=== PATIENT | female | born 1980 | race Caucasian/White ===

== ENCOUNTER 2017-04-03 09:17 | Outpatient (CLI) | payer BC, MEDICAID ==
--- NOTE | 2017-04-03 13:24 | Ultrasound Report ---
FINAL REPORT EXAM: US RENAL BILAT HISTORY: LEFT UPPER QUADRANT PAIN. Patient is 37 weeks . TECHNIQUE: Renal ultrasound PRIORS: None. FINDINGS: The right kidney measures 10.3 x 5.5 x 6.1 cm. Renal cortex is 1.8 cm. Left kidney measures 11.6 x 5.2 x 5.8 cm. Renal cortex measures at least 1.3 cm thickness. There is a minimal degree of right hydronephrosis. There is a left renal echogenicity without shadowing. This could be a renal calculus. Bladder is incompletely distended, grossly unremarkable. IMPRESSION: Minimal right hydronephrosis. Small echogenicity in the left kidney without shadowing could be a small renal stone.
== END 2017-04-03 09:18 | disposition home or self-care (01) ==
LOC: US 09:17
PROVIDERS: ATTEND Obstetrics & Gynecology
DX: N13.30 Unspecified hydronephrosis (principal)
CPT/HCPCS: 76770

== ENCOUNTER 2017-04-16 10:27 | Inpatient (IN) | payer BC, MEDICAID ==
[2017-04-16] MEDS ORDERED: MINERAL OIL PO PRN (11:38)
[2017-04-16] MEDS ORDERED: BRETHINE SUB-Q PRN (11:38)
[2017-04-16] MEDS ORDERED: XYLOCAINE 2% INFILTRATI ONE (11:38)
[2017-04-16] MEDS ORDERED: ZOFRAN IV PRN (11:38)
[2017-04-16] MEDS ORDERED: ePHEDrine SULFATE IV PRN (11:38)
[2017-04-16] MEDS ORDERED: POLYCILLIN/NS 2 GM/100 ML 2 GM/100 ML BAG IV ONE (11:38)
[2017-04-16] MEDS ORDERED: SUBLIMAZE IV PRN (11:38)
[2017-04-16] MEDS ORDERED: PITOCin/NS 20 UNIT/1000ML DRIP 20 UNITS/1,000 ML BAG IV SCH (12:00)
[2017-04-16] MEDS ORDERED: PITOCin/NS 30 UNIT/500ML 30 UNITS/500 ML BAG IV SCH ×2 (12:00→18:00)
[2017-04-16 12:21] LABS: Hematocrit 34.5 % (30.3-42.9); Hemoglobin 12.1 gm/dl (10.1-14.3); Mean Corpuscular HGB Conc 35 % (30-34); Mean Corpuscular Hemoglobin 34 pg (28-32); Mean Corpuscular Volume 97 fl (79-97); Platelet Count 165 K/mm3 (140-440); Red Blood Count 3.57 M/mm3 (3.65-5.03); Red Cell Distribution Width 14.4 % (13.2-15.2)
[2017-04-16] MEDS: LACTATED RINGERS 1,000 ML IV SCH ×2 (13:04→22:47)
--- NOTE | 2017-04-16 13:12 | History and Physical Report ---
History of Present Illness Date of examination: 04/16/17 (pt presents to Triage with SROM) Date of admission: 04/16/17 11:50 History of present illness: EDC Confirmation: 04/28/2017 Gestational Age: 7 3/7 weeks Past History : 2 Term Births: 1 Living Children: 1 # 1 Delivery date: 09/25/2013 Weeks Gestation: 39 Delivery type: Vaginal Anesthesia type: none Delivery location: [facility] Infant Sex: male weight: 7#8oz Comments: none Past Medical History: Reviewed history from 02/03/2013 and no changes required: Negative Past Medical History Past Surgical History: Reviewed history from 01/01/2013 and no changes required: negative Past Medical History Anesthesia Complications: negative Anemia: negative Autoimmune Disorder: negative Bleeding Disorder: negative Blood Transfusions: negative Breast Disease: negative Diabetes: negative Heart Disease: negative Hypertension: negative Hepatitis/Liver Disease: negative Kidney Disease/UTI: negative Neurologic/Epilepsy/Migraines: negative Phlebitis/Varicosities: negative Psychiatric: negative Pulmonary Disease/Asthma: negative Thyroid Disease: negative Hospitalizations: negative Surgery (Non-director of content and programming): negative Abnormal PAP: negative KATHRYN Exposure: negative Infertility: negative Uterine Anomaly: negative Uterine Surgery (not C/S): negative Other Gynecologic Problems: negative Social Hx: Patient is Infection History Hx of STD: none HIV Risk Eval: low risk Hepatitis B Risk Eval: low risk Personal hx. of genital herpes: no Partner hx. of genital herpes: no Varicella/Chicken Pox Status: Previous Disease Genetic History Congenital Heart Defect: Mom: no Dad: no Atul Disease: Mom: no Dad: no Thalassemia Mom: no Dad: no Neural Tube Defect Mom: no Dad: no Down's Syndrome Mom: no Dad: no Jesus-Sachs Mom: no Dad: no Sickle Cell Disease/Trait Mom: no Dad: no Hemophilia Mom: no Dad: no Muscular Dystrophy Mom: no Dad: no Cystic Fibrosis Mom: no Dad: no [place] Chorea Mom: no Dad: no Mental Retardation Mom: no Dad: no Fragile X Mom: no Dad: no Other Genetic/Chromosomal Disorder Mom: no Dad: no Child w/other defect Mom: no Dad: no Comments/Counseling: Nephew has some terrible neurological disorder--doesn't move, has feeding tube. Enviromental Exposures Xray Exposure: no Medication, drug, or alcohol use since LMP: no Chemical/Other Exposure: no Exposure to Cat Liter: no Current Allergies (reviewed today): No known allergies Laboratory Results Routine Urinalysis Leukocytes: negative Nitrite: negative Urobilinogen: negative Protein: negative Blood: 1+ Ketone: negative Bilirubin: negative Glucose: negative Urine HCG: positive Review of Systems General Denies fever, chills, sweats, anorexia, fatigue, weakness, malaise, weight loss and sleep disorder. Denies nausea, vomiting, headache, swelling of legs, abdominal pain, vaginal discharge, vaginal bleeding and contractions. Denies vaginal discharge, incontinence, dysuria, hematuria, urinary frequency, amenorrhea, menorrhagia, abnormal vaginal bleeding, pelvic pain, genital sores, decreased libido, painful periods, painful sex, urinary urgency, hot flashes, vaginal dryness, vaginal itching and vaginal odor. CV Denies chest pains, palpitations, syncope, dyspnea on exertion, orthopnea, PND and peripheral edema. Resp Denies cough, dyspnea at rest, excessive sputum, hemoptysis, wheezing and pleurisy. GI Denies nausea, vomiting, diarrhea, constipation, change in bowel habits, abdominal pain, melena, hematochezia, jaundice, gas/bloating, indigestion/ heartburn, dysphagia and odynophagia. Endo Denies cold intolerance, heat intolerance, polydipsia, polyphagia, polyuria and unusual weight change. Breast Denies left breast lump, right breast lump, nipple discharge, bloody discharge from nipple, breast pain, abnormal mammogram and breast enlargement. MS Denies back pain, joint pain, joint swelling, muscle cramps, muscle weakness, stiffness, arthritis, sciatica, restless legs, leg pain at night and leg pain with exertion. Derm Denies rash, itching, dryness and suspicious lesions. Neuro Denies paralysis, paresthesias, headache, seizures, tremors, vertigo, transient blindness, frequent falls, frequent headaches and difficulty walking. Psych Denies depression, anxiety, irritability and mood swings. Eyes Denies blurring, diplopia, irritation, discharge, vision loss, eye pain and photophobia. ENT Denies earache, ear discharge, tinnitus, decreased hearing, nasal congestion, nosebleeds, sore throat and hoarseness. Allergy Denies urticaria, allergic rash, hay fever and recurrent infections. Heme Denies abnormal bruising, bleeding and enlarged lymph nodes. PHYSICAL EXAM HEENT: PERRLA, normal conjunctiva, external nose and nasal mucosa normal, oropharynx clear Neck/Thyroid: supple, thyroid normal Skin no significant abnormal lesions or rashes Chest: respiratory effort normal, clear to auscultation Breasts: normal without skin changes or masses CV: regular, normal S1-S2, no murmur, no rub, no gallop Abdomen: normal bowel sounds, soft, nontender, no HSM Musculoskeletal: grossly normal ROM in joints, no joint tenderness or muscle weakness Neuro: grossly normal DTRs, sensation, strength, cranial nerves Extremities: no clubbing, cyanosis, or edema [employer]EN[employer] 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 Exams Vulva/Vagina: No lesions, normal BUS, normal rugae Cervix: No lesions; no cervical motion tenderness Uterus: normal size and position, midline, mobile Adnexae: no masses or tenderness Rectovaginal: no masses or tenderness Past History - Obstetrical History Expected Date of Delivery: 04/28/17 Actual Gestation: 38 Week(s) 2 Day(s) : 2 Para: 1 Hx # Term Pregnancies: 1 Number of Living Children: 1 Medications and Allergies Allergies Allergy/AdvReac Type Severity Reaction Status Date / Time No Known Allergies Allergy Unverified 09/24/13 22:31 Home Medications Medication Instructions Recorded Confirmed Last Taken Type Ferrous Sulfate [Feosol 325 MG tab] 325 mg PO BID #60 tablet 09/26/13 04/16/17 Unknown Rx Ibuprofen [Motrin 600 MG tab] 800 mg PO Q6H PRN #30 tablet 09/26/13 04/16/17 Unknown Rx Pnv No.121/Iron/Folic Acid 1 tab PO QDAY 04/16/17 04/16/17 04/15/17 14:00 History [ Multivitamin Tablet] Active Meds: Active Medications Butorphanol Tartrate (Stadol) 2 mg IV Q2H PRN PRN Reason: Pain , Severe (7-10) Ephedrine Sulfate (Ephedrine Sulfate) 10 mg IV Q2M PRN PRN Reason: Hypotension Fentanyl (Sublimaze) 100 mcg IV Q2H PRN PRN Reason: Labor Pain Ampicillin Sodium (Polycillin/Ns 1 Gm/50 Ml) 1 gm in 50 mls @ 100 mls/hr IV Q4HR TREASURE PRN Reason: Protocol Lactated Ringer's (Lactated Ringers) 1,000 mls @ 125 mls/hr IV DIRECT TREASURE Last Admin: 04/16/17 13:04 Dose: 125 mls/hr Oxytocin/Sodium Chloride (Pitocin/Ns 20 Unit/1000ml Drip) 20 units in 1,000 mls @ 125 mls/hr IV DIRECT TREASURE Oxytocin/Sodium Chloride (Pitocin/Ns 30 Unit/500ml) 30 units in 500 mls @ 4 mls /hr IV TITR TREASURE PRN Reason: Protocol Influenza Virus Vaccine Quadrival (Fluarix Quad [id number](36 Mos+) 0.5 ml IM .ONCE ONE Stop: 04/17/17 12:01 Mineral Oil (Mineral Oil) 30 ml PO QHS PRN PRN Reason: Constipation Ondansetron HCl (Zofran) 4 mg IV Q8H PRN PRN Reason: Nausea And Vomiting Terbutaline Sulfate (Brethine) 0.25 mg SUB-Q ONCE PRN PRN Reason: Hyperstimulation/Hypertonicity - Vital Signs Vital signs: Vital Signs Pulse BP 86 112/70 04/16/17 11:20 04/16/17 11:20 Temp Pulse Resp BP Pulse Ox 95 H 112/72 98 04/16/17 13:09 04/16/17 13:05 04/16/17 13:09 - Physical Exam Breasts: Positive: deferred Cardiovascular: Regular rate, Normal S1, Normal S2 Lungs: Positive: Normal air movement Abdomen: Positive: normal appearance, soft, normal bowel sounds. Negative: distention, tenderness Genitourinary (Female): Positive: normal external genitalia Vulva: both: normal Vagina: Positive: normal moisture. Negative: discharge Cervix: Negative: lesion, discharge Uterus: Positive: normal size, normal contour Adnexa: both: normal Anus/Rectum: Positive: normal perianal skin, heme negative. Negative: rectal mass, hemorrhoids Extremities: Positive: normal Deep Tendon Reflex Grade: Normal +2 - Obstetrical FHR: category 1 Uterine Contraction Monitor Mode: External Cervical Dilatation: 1 (per creative/art director) Cervical Effacement Percentage: 30 station: -3 Uterine Contraction Pattern: Irregular Uterine Tone Measurement Phase: Resting Uterine Contraction Intensity: Mild (pt does not feel ctx at all) Results Result Diagrams: 04/16/17 11:50 Abnormal lab results 04/16/17 Range/Units 11:50 RBC 3.57 L (3.65-5.03) M/mm3 MCH 34 H (28-32) pg MCHC 35 H (30-34) % All other labs normal. Urine Culture, Routine [A] Final report *1 Tests: (2) Result ([id number]) Jan 05 dx made of GBS in urine. ! ! Result 2 [A] BETAGB *3 Beta hemolytic Streptococcus, group B 10,000-25,000 colony forming units per mL Penicillin and ampicillin are drugs of choice for treatment of beta-hemolytic streptococcal infections. Susceptibility testing of penicillins and other beta-lactam agents approved by the FDA for treatment of beta-hemolytic streptococcal infections need not be performed routinely because nonsusceptible isolates are extremely rare in any beta-hemolytic streptococcus and have not been reported for Streptococcus pyogenes (group A). (CLSI 2011) HBsAg Screen Negative Negative *1 Rubella Antibodies, IgG [L] <0.90 index Immune >0.99 *2 Non-immune <0.90 Equivocal 0.90 - 0.99 Immune >0.99 ABO Grouping O *3 Rh Factor Positive *4 Please note: Prior records for this patient's ABO / Rh type are not available for additional verification. Antibody Screen Negative Negative *5 RPR Non Reactive Non Reactive *6 WBC 7.6 x10E3/uL 3.4-10.8 *7 RBC 3.87 x10E6/uL 3.77-5.28 *8 Hemoglobin 12.6 g/dL 11.1-15.9 *9 Hematocrit 37.4 % 34.0-46.6 *10 MCV 97 fL 79-97 *11 MCH 32.6 pg 26.6-33.0 *12 MCHC 33.7 g/dL 31.5-35.7 *13 RDW 14.3 % 12.3-15.4 *14 Platelets 231 x10E3/uL 150-379 *15 Neutrophils 69 % *16 Lymphs 24 % *17 Monocytes 6 % *18 Eos 1 % *19 Basos 0 % *20 ! Immature Cells <No Reported Value> *21 Neutrophils (Absolute) 5.2 x10E3/uL 1.4-7.0 *22 Lymphs (Absolute) 1.8 x10E3/uL 0.7-3.1 *23 Monocytes(Absolute) 0.4 x10E3/uL 0.1-0.9 *24 Eos (Absolute) 0.1 x10E3/uL 0.0-0.4 *25 Baso (Absolute) 0.0 x10E3/uL 0.0-0.2 *26 ! Immature Granulocytes 0 % *27 ! Immature Grans (Abs) 0.0 x10E3/uL 0.0-0.1 *28 ! NRBC <No Reported Value> *29 Hematology Comments: <No Reported Value> *30 Tests: (2) HB Solu + Rflx [facility] ([id number]) Hemoglobin (Hgb) Solubility Negative Negative *31 Tests: (3) Panel [id number] ([id number]) HIV Screen 4th Generation wRfx Non Reactive Non Reactive *32 Tests: (4) HCV Ab w/Rflx to Verification (167809) ! HCV Ab <0.1 s/co ratio 0.0-0.9 *33 Tests: (5) Comment: ([id number]) ! Comment: SPRCS *34 Non reactive HCV antibody screen is consistent with no HCV infection, unless recent infection is suspected or other evidence exists to indicate HCV infection. Assessment and Plan 37yo @ 38 weeks with PROM. GBS+ from urine culture. Amp started. All orders in EMR - Patient Problems (1) GBS (group B Streptococcus carrier), +RV culture, currently Onset Date: ~04/16/17 Current Visit: Yes Status: Acute Plan to address problem: Ampicillin started Pt presented with SROM prior to labor. Ampicillin per protocol.
[2017-04-16] MEDS: STADOL IV PRN ×2 (16:21→22:41)
[2017-04-16] MEDS: POLYCILLIN/NS 1 GM/50 ML 1 GM/50 ML BAG IV SCH ×2 (17:11→21:00)
[2017-04-16] MEDS ORDERED: AMBIEN PO PRN (17:36)
--- NOTE | 2017-04-16 17:47 | Progress Note ---
Assessment and Plan no significant cervical change pitocin augmentation and regular ctx. afebrile, fluid is clear and odorless, abd soft and nontender. Will allow patient to shower and eat dinner, and do low dose pitocin overnight for cervical ripening. expectations discussed for pt to rest tonight but that she may kick into labor at any time. We will continue to limit SVEs and monitor for s/s infection. All questions addressed, patient and s/o verbalize understanding. - Patient Problems (1) 38 weeks gestation of Current Visit: Yes Status: Acute (2) GBS (group B Streptococcus carrier), +RV culture, currently Onset Date: ~04/16/17 Current Visit: Yes Status: Acute Plan to address problem: Continue antibiotics q4h (3) PROM (premature rupture of membranes) Current Visit: Yes Status: Acute Qualifiers: PROM onset of labor timing: unspecified duration between rupture of membranes and onset of labor PROM gestational age: full term Qualified Code( s): O42.92 - Full-term premature rupture of membranes, unspecified as to length of time between rupture and onset of labor Plan to address problem: Limit SVE monitor for s/s infection Subjective - Subjective Date of service: 04/16/17 Principal diagnosis: IUP @ 38weeks, PROM 04/16/17 clear Patient reports: loss of fluid, movement normal, contractions, no new complaints, no vaginal bleeding Objective - Vital Signs Vital Signs: Vital Signs - 12hr 04/16/17 04/16/17 04/16/17 11:20 12:49 12:54 Temperature Pulse Rate 86 89 82 Respiratory Rate Blood Pressure 112/70 Blood Pressure [Right] O2 Sat by Pulse 97 97 Oximetry 04/16/17 04/16/17 04/16/17 12:59 13:04 13:05 Temperature Pulse Rate 83 82 80 Respiratory Rate Blood Pressure 112/72 Blood Pressure [Right] O2 Sat by Pulse 97 98 Oximetry 04/16/17 04/16/17 04/16/17 13:06 13:09 13:14 Temperature Pulse Rate 63 95 H 87 Respiratory Rate Blood Pressure Blood Pressure [Right] O2 Sat by Pulse 91 98 97 Oximetry 04/16/17 04/16/17 04/16/17 13:19 13:21 13:24 Temperature 97.2 F L Pulse Rate 82 83 83 Respiratory 18 Rate Blood Pressure Blood Pressure 112/72 [Right] O2 Sat by Pulse 97 98 98 Oximetry 04/16/17 04/16/17 04/16/17 13:29 13:39 13:44 Temperature Pulse Rate 75 86 84 Respiratory Rate Blood Pressure Blood Pressure [Right] O2 Sat by Pulse 98 99 98 Oximetry 04/16/17 04/16/17 04/16/17 13:49 13:54 13:59 Temperature Pulse Rate 82 86 85 Respiratory Rate Blood Pressure Blood Pressure [Right] O2 Sat by Pulse 97 98 98 Oximetry 04/16/17 04/16/17 04/16/17 14:04 14:09 14:14 Temperature Pulse Rate 86 86 90 Respiratory Rate Blood Pressure Blood Pressure [Right] O2 Sat by Pulse 97 97 97 Oximetry 04/16/17 04/16/17 04/16/17 14:19 14:24 14:29 Temperature Pulse Rate 81 74 76 Respiratory Rate Blood Pressure Blood Pressure [Right] O2 Sat by Pulse 96 97 96 Oximetry 04/16/17 04/16/17 04/16/17 14:34 14:39 14:44 Temperature Pulse Rate 73 82 82 Respiratory Rate Blood Pressure Blood Pressure [Right] O2 Sat by Pulse 97 97 97 Oximetry 04/16/17 04/16/17 04/16/17 14:49 14:54 14:59 Temperature Pulse Rate 79 84 83 Respiratory Rate Blood Pressure Blood Pressure [Right] O2 Sat by Pulse 97 98 97 Oximetry 04/16/17 04/16/17 04/16/17 15:04 15:09 15:14 Temperature Pulse Rate 87 76 78 Respiratory Rate Blood Pressure Blood Pressure [Right] O2 Sat by Pulse 98 97 97 Oximetry 04/16/17 04/16/17 04/16/17 15:19 15:24 15:27 Temperature Pulse Rate 85 79 80 Respiratory Rate Blood Pressure 113/75 Blood Pressure [Right] O2 Sat by Pulse 98 98 Oximetry 04/16/17 04/16/17 04/16/17 15:29 15:34 15:39 Temperature Pulse Rate 88 82 85 Respiratory Rate Blood Pressure Blood Pressure [Right] O2 Sat by Pulse 97 97 97 Oximetry 04/16/17 04/16/17 04/16/17 15:44 15:49 15:54 Temperature Pulse Rate 78 83 89 Respiratory Rate Blood Pressure Blood Pressure [Right] O2 Sat by Pulse 97 98 97 Oximetry 04/16/17 04/16/17 04/16/17 15:59 16:04 16:09 Temperature Pulse Rate 94 H 81 83 Respiratory Rate Blood Pressure Blood Pressure [Right] O2 Sat by Pulse 97 99 98 Oximetry 04/16/17 04/16/17 04/16/17 16:14 16:19 16:22 Temperature Pulse Rate 84 86 89 Respiratory Rate Blood Pressure 120/76 Blood Pressure [Right] O2 Sat by Pulse 98 97 Oximetry 04/16/17 04/16/17 04/16/17 16:24 16:29 16:32 Temperature Pulse Rate 88 87 86 Respiratory Rate Blood Pressure 125/78 Blood Pressure [Right] O2 Sat by Pulse 98 94 Oximetry 04/16/17 04/16/17 04/16/17 16:34 16:39 16:40 Temperature Pulse Rate 83 86 86 Respiratory Rate Blood Pressure Blood Pressure [Right] O2 Sat by Pulse 97 96 94 Oximetry 04/16/17 04/16/17 04/16/17 16:44 16:47 16:49 Temperature Pulse Rate 86 85 87 Respiratory Rate Blood Pressure Blood Pressure [Right] O2 Sat by Pulse 96 94 95 Oximetry 04/16/17 04/16/17 04/16/17 16:52 16:54 16:58 Temperature Pulse Rate 88 83 84 Respiratory Rate Blood Pressure 126/75 Blood Pressure [Right] O2 Sat by Pulse 94 95 Oximetry 04/16/17 04/16/17 04/16/17 16:59 17:04 17:09 Temperature Pulse Rate 89 89 87 Respiratory Rate Blood Pressure Blood Pressure [Right] O2 Sat by Pulse 96 96 95 Oximetry 04/16/17 04/16/17 04/16/17 17:14 17:16 17:19 Temperature 98.3 F Pulse Rate 83 88 88 Respiratory 18 Rate Blood Pressure Blood Pressure [Right] O2 Sat by Pulse 95 97 97 Oximetry 04/16/17 04/16/17 04/16/17 17:24 17:29 17:34 Temperature Pulse Rate 82 82 84 Respiratory Rate Blood Pressure Blood Pressure [Right] O2 Sat by Pulse 95 97 96 Oximetry 04/16/17 17:39 Temperature Pulse Rate 85 Respiratory Rate Blood Pressure Blood Pressure [Right] O2 Sat by Pulse 97 Oximetry - Exam Breasts: normal Cardiovascular: Regular rate Lungs: Clear to auscultation, Normal air movement Abdomen: Present: normal appearance, soft Vulva: both: normal Uterus: Present: normal FHR: auscultation normal, category 1 Uterine Contraction Monitor Mode: External Cervical Dilatation: 1 Cervical Effacement Percentage: 40 station: -2 Uterine Contraction Frequency (min): 2-4 Uterine Contraction Duration: 60 Uterine Contraction Pattern: Regular Uterine Tone Measurement Phase: Contraction Uterine Contraction Intensity: Moderate Extremities: normal Deep Tendon Reflex Grade: Normal +2 - Labs Labs: Abnormal Labs 04/16/17 11:50 RBC 3.57 L MCH 34 H MCHC 35 H Laboratory Results - last 24 hr 04/16/17 04/16/17 11:50 11:50 WBC 10.0 RBC 3.57 L Hgb 12.1 Hct 34.5 MCV 97 MCH 34 H MCHC 35 H RDW 14.4 Plt Count 165 Blood Type O POSITIVE Antibody Screen Negative
[2017-04-17] MEDS: STADOL IV PRN (01:58)
--- NOTE | 2017-04-17 03:16 | Procedure Note ---
OB Delivery Note - Delivery Date of Delivery: 04/17/17 ( male) Foster Care Worker: LEVON PEREZ Estimated blood loss: 200cc - Vaginal Delivery presentation: vertex Delivery position: OA Intrapartum events: PROM->1hr before delivery Delivery induction: none Delivery augmentation: pitocin Delivery monitor: external FHT, external uterine Route of delivery: Delivery placenta: spontaneous Delivery cord: 3 umbilical vessels Episiotomy: none Delivery laceration: none Anesthesia: intravenous Delivery comments: Male del over intact perineum, STEFF, no shoulder dystocia. Infant vigourous, placed on mother's abd. 3 vessel cord clamped and cut, cord blood collected. Placenta del intact and complete. Pit to IVF. no lacerations. EBL 200. Apgars 8/9, wt 6#14oz. Mother and infant remain LDR stable. - A at 1 minute: 8 at 5 minutes: 9 Infant Gender: Male (6#14)
[2017-04-17] MEDS ORDERED: PITOCin/NS 20 UNIT/1000ML DRIP 20 UNITS/1,000 ML BAG IV SCH (05:18)
[2017-04-17] MEDS ORDERED: MILK OF MAGNESIA PO PRN (05:18)
[2017-04-17] MEDS ORDERED: LANSINOH TP PRN (05:18)
[2017-04-17] MEDS ORDERED: PHENERGAN PO PRN (05:18)
[2017-04-17] MEDS ORDERED: SODIUM CHLORIDE FLUSH SYRINGE 10 ML IV NR (05:18)
[2017-04-17] MEDS ORDERED: DULCOLAX PR PRN (05:18)
[2017-04-17] MEDS ORDERED: BENADRYL PO PRN (05:18)
[2017-04-17] MEDS ORDERED: TUCKS PAD TP PRN (05:18)
[2017-04-17] MEDS ORDERED: NORCO 5/325 PO PRN (05:18)
[2017-04-17] MEDS ORDERED: TYLENOL PO PRN (05:18)
[2017-04-17] MEDS ORDERED: M-M-R II VACCINE SUB-Q ONE (06:00)
[2017-04-17] MEDS: MOTRIN PO SCH ×3 (06:10→23:11)
[2017-04-17] MEDS: COLACE PO SCH ×2 (08:46→22:17)
[2017-04-17] MEDS: PRENATAL VITAMIN PO SCH (08:47)
[2017-04-17] MEDS ORDERED: Fluarix Quad 2017-2018(36 MOS+ IM ONE (12:00)
[2017-04-17 16:15] LABS: Hematocrit 31.1 % (30.3-42.9); Hemoglobin 10.7 gm/dl (10.1-14.3)
[2017-04-17] MEDS ORDERED: BOOSTRIX IM ONE (22:30)
[2017-04-18] MEDS: MOTRIN PO SCH ×4 (05:44→23:08)
[2017-04-18] MEDS ORDERED: BOOSTRIX IM ONE (06:00)
--- NOTE | 2017-04-18 08:07 | Discharge Summary ---
Providers - Providers Date of Admission: 04/16/17 11:50 Date of discharge: 04/18/17 (desires d/c) Attending physician: AARON STEARNS 04/17/17 05:18 Consult to Search Optimization Analyst [CONS] Routine Reason For Exam: assistance with , SNS Primary care physician: AARON STEARNS Hospitalization Reason for admission: active labor, induction of labor, rupture of membranes Delivery: Episiotomy: none Laceration: none Incision: normal Other procedures: none complications: none Discharge diagnosis: IUP at term delivered [place] baby: male (pt will call OB office to [facility]ane circumcision) Hospital course: uncomplicated vaginal delivery Pt w/o compliment VSS FF below umb Lochia small Perineum intact H&H 02/26 drop r /t blood loss from delivery No s/sx of anemia Doing well s/p vag delivery P: d/ c instructions given F/U 1 week for circ and 4 weeks for PP visit. Condition at discharge: Good Disposition: DC-01 TO HOME OR SELFCARE - Discharge Diagnoses (1) (normal spontaneous vaginal delivery) Status: Acute Comment: RTO 4 weeks PP care Plan - Discharge Medications Prescriptions: Ibuprofen [Motrin 800 MG tab] 800 mg PO Q8HR PRN #30 tablet PRN Reason: Pain Lidocain2.5%/Prilocai2.5% [Emla] 5 gm TP ONCE PRN #1 tube PRN Reason: Pain - Provider Discharge Summary Activity: routine, no sex for 6 weeks, no heavy lifting 4 weeks, no strenuous exercise Diet: routine Instructions: routine Additional instructions: [] Smoking cessation referral if applicable(refer to patient education folder for contact #) [] Refer to [facility] Booklet Call your doctor immediately for: * Fever > 100.5 * Heavy vaginal bleeding ( >1 pad per hour) * Severe persistent headache * Shortness of breath * Reddened, hot, painful area to leg or breast * Drainage or odor from incision. * Keep incision clean and dry at all times and follow doctor's instructions regarding bathing/showering - Follow up plan Follow up: AARON STEARNS MD [Primary Care Provider] - 7 Days (Congratulations! Please call [phone] to schedule your visit in 4 weeks. Take medication as prescribed. Call to schedule your son's circumcision in 1 week. Bring the EMLA cream with you to his visit. Call with any concerns.)
[2017-04-18] MEDS: PRENATAL VITAMIN PO SCH (12:41)
[2017-04-18] MEDS ORDERED: Fluarix Quad 2017-2018(36 MOS+ IM ONE (21:30)
[2017-04-18] MEDS: COLACE PO SCH (22:31)
[2017-04-19] MEDS: MOTRIN PO SCH ×2 (05:47→12:25)
[2017-04-19] MEDS ORDERED: M-M-R II VACCINE SUB-Q ONE (09:30)
[2017-04-19] MEDS: PRENATAL VITAMIN PO SCH ×2 (09:37→09:42)
[2017-04-19 15:16] VITALS: BP 109/77
== END 2017-04-19 15:45 | disposition home or self-care (01) | DRG 775 ==
LOC: TRG 10:27 → LD 11:50 → OB 04-17 05:32
PROVIDERS: ADMIT Obstetrics & Gynecology; ATTEND Obstetrics & Gynecology
PROC: 10E0XZZ Delivery of Products of Conception, External Approach (ICD-10-PCS; principal; 2017-04-17)
PROC: 3E0234Z Introduction of Serum, Toxoid and Vaccine into Muscle, Percutaneous Approach (ICD-10-PCS; 2017-04-17)
DX: O99.824 Streptococcus B carrier state complicating childbirth (principal); O42.02 Full-term premature rupture of membranes, onset of labor within 24 hours of rupture; Z37.0 Single live birth; Z23 Encounter for immunization; Z3A.38 38 weeks gestation of pregnancy; Z79.899 Other long term (current) drug therapy
CPT/HCPCS: 36415; 85014; 85018; 85027; 86592; 86850; 86900; 86901; 90471; 90686; 90707; 90715; 99211; A6250; G0008; G0463; J0290; J0595; J2590; J7120